=== PATIENT | female | born 1975 ===

== ENCOUNTER → 2018-11-28 | Outpatient (CLI) | payer OTHER | LOC: C.LAB 07:41 | DX: J02.9 Acute pharyngitis, unspecified (principal); J43.9 Emphysema, unspecified; M17.11 Unilateral primary osteoarthritis, right knee ==

== ENCOUNTER 2019-01-15 08:49 | Outpatient (CLI) | payer OTHER | END 2019-01-15 08:50 | disposition home or self-care (01) | LOC: C.LAB 08:49 | DX: J44.9 Chronic obstructive pulmonary disease, unspecified (principal) ==

== ENCOUNTER 2019-02-10 14:37 | Outpatient (CLI) | payer OTHER | END 2019-02-10 14:38 | disposition home or self-care (01) | LOC: C.LAB 14:37 ==